=== PATIENT | female | born 1985 | race Hispanic/Latino ===

== ENCOUNTER 2017-06-07 17:38 | Emergency (ER) | payer SELFPAY ==
[2017-06-07 18:00] VITALS: O2SAT 97
--- NOTE | 2017-06-07 18:40 | ED.PDOC ---
History of Present Illness - General Chief Complaint: Lower Extremity Injury Stated Complaint: RIGHT HIP PAIN Time Seen by Provider: 06/07/17 18:30 Source: patient Exam Limitations: no limitations - History of Present Illness Initial Comments: Dottie Jordan 31 y/o female seen er today with dull ache right side of her back goes to the back of her right hip stating strong wind blew the dresser while she was bending over and landed on her back causing her symptoms.No bowel or bladder dysfunction but pain on straightening her back. Timing/Duration: 1-3 hours Quality/Severity: dullness Back Pain Location: lumbar spine, paraspinous muscles Back Pain Radiation: other - right hip Method of Injury/Prior Injury: other - see hpi Improving Factors: rest Worsening Factors: movement Associated Symptoms: denies symptoms Allergies/Adverse Reactions: Allergies Codeine Adverse Reaction (Mild, Verified 11/05/14 11:51) Itching Mometasone [From Nasonex] Adverse Reaction (Mild, Verified 11/05/14 11:51) Itching Home Medications: Ambulatory Orders Acetaminophen W/ Codeine [Tylenol W/ CODEINE #3] 1 ea PO Q6H #20 11/05/14 Amoxicillin & Pot Clavulanate [Augmentin] 875 mg PO BID #14 tab 11/05/14 Clindamycin HCl [Cleocin] 600 mg PO BID #14 cap 11/05/14 Naproxen [Naprosyn] 500 mg PO BID #30 tab 11/05/14 Ondansetron [Zofran Odt] 4 mg PO Q6H #20 tab 11/05/14 Tramadol HCl [Ultram] 50 mg PO Q6H #20 tab 11/05/14 Review of Systems - Review of Systems Constitutional: States: no symptoms reported EENTM: States: no symptoms reported Respiratory: States: no symptoms reported Cardiology: States: no symptoms reported, chest pain Genitourinary: States: no symptoms reported Musculoskeletal: States: see HPI Neurological: States: no symptoms reported All other Systems: Reviewed and Negative, No Change from Baseline Past Medical History (General) - Patient Medical History Hx Stroke: No Hx Asthma: No Hx of COPD: No Hx Cardiac Disorders: No Hx Congestive Heart Failure: No Hx Diabetes: No Hx Renal Disease: No Hx MRSA: No - Vaccination History Hx Tetanus, Diphtheria Vaccination: Yes - 10/2014 Hx Influenza Vaccination: No - Social History Hx Tobacco Use: No Hx Substance Use: No Hx Physical Abuse: No Hx Emotional Abuse: No Hx Suspected Abuse: No - Female History Patient is a Female of Child Bearing Age (10 -59 yrs old): Yes Hx Last Menstrual Period: 06/07/17 - started her period Patient : No Family Medical History - Family History Mother Name: Gena Living Status: Still Living Hx Family Hypertension: Yes - parents Hx Family Diabetes: Yes - parents Age of Onset (years of age): unk Hx Family Cancer: Yes - cervical cancer-multiple family members Father Name: Noah Living Status: Still Living Hx Family;Other: undergoing biopsies and scans currently for possible liver cancer Physical Exam - Physical Exam General Appearance: Alert, Comfortable, No apparent distress Eyes, Ears, Nose, Throat Exam: PERRL/EOMI, normal ENT inspection Neck Exam: non-tender, full range of motion, normal alignment Cardiovascular/Respiratory: regular rate, rhythm, no M/R/G, normal peripheral pulses Peripheral Pulses: radial,right: 2+, radial,left: 2+ Gastrointestinal/Abdominal: normal bowel sounds, non tender, soft, no organomegaly Back Exam: muscle spasm, vertebral tenderness - right lumbar area Extremity Exam: no evidence of injury, normal range of motion, non-tender, no pedal edema Neurologic: no motor/sensory deficits, alert, oriented x 3 Skin Exam: normal color, warm/dry Progress - Progress Progress: 06/07/17 18:44 Last Vital Signs Temp 97.6 F 06/07/17 17:49 Pulse 80 06/07/17 17:49 Resp 20 06/07/17 17:49 BP 129/85 06/07/17 17:49 Pulse Ox 97 06/07/17 17:49 - EKG/XRAY/CT XRAY: hip - no fracture right hip and lumbar spine Departure - Departure Clinical Impression: Contusion of hip, right Qualifiers: Encounter type: initial encounter Qualified Code(s): S70.01XA - Contusion of right hip, initial encounter Lumbar contusion Qualifiers: Encounter type: initial encounter Qualified Code(s): S30.0XXA - Contusion of lower back and pelvis, initial encounter Time of Disposition: 19:50 Disposition: Discharge to Home or Self Care Condition: Fair Departure Forms: ED Discharge - Pt. Copy, Patient Portal Self Enrollment Instructions: DI for Contusion, Contusion Referrals: Domenic Arroyo MD [Primary Care Provider] - 1-2 Weeks Home Medications: Ambulatory Orders Acetaminophen W/ Codeine [Tylenol W/ CODEINE #3] 1 ea PO Q6H #20 11/05/14 Amoxicillin & Pot Clavulanate [Augmentin] 875 mg PO BID #14 tab 11/05/14 Clindamycin HCl [Cleocin] 600 mg PO BID #14 cap 11/05/14 Naproxen [Naprosyn] 500 mg PO BID #30 tab 11/05/14 Ondansetron [Zofran Odt] 4 mg PO Q6H #20 tab 11/05/14 Tramadol HCl [Ultram] 50 mg PO Q6H #20 tab 11/05/14 Additional Instructions: Continue with ice pack to affected area 20 minutes 3 x a day during waking hours only as needed for 5 days;No heat for the next 3 days;May take ALEVE (otc ) 2 tablets am/pm also for pain with tramadol
[2017-06-07] MEDS ORDERED: KETOROLAC TROMETHAMINE INJ 30 MG/ML VIAL IM ONE (19:21)
[2017-06-07] MEDS ORDERED: ORPHENADRINE CITRATE 30 MG/ML AMP IM ONE (19:21)
--- NOTE | 2017-06-07 19:27 | RAD ---
EXAM DESCRIPTION: Hip,Right 2 Views CLINICAL HISTORY: 31 years Female pain COMPARISON: None. TECHNIQUE: RIGHT hip, two views FINDINGS: No acute fractures or dislocations are identified. No osseous destructive lesions. IMPRESSION: No acute fracture is identified. Electronically signed by: Cristal Ag 06/07/2017 7:26 PM [facility]
--- NOTE | 2017-06-07 19:28 | RAD ---
EXAM DESCRIPTION: Lumbar Spine 3 Views CLINICAL HISTORY: 31 years ,Female pain COMPARISON: None. TECHNIQUE: Three views FINDINGS: Vertebral body alignment is unremarkable. No acute fractures are identified. IMPRESSION: No acute fracture is identified. Electronically signed by: Cristal Ag 06/07/2017 7:27 PM [facility]
[2017-06-07] MEDS ORDERED: traMADol HCL 50 MG (ER DISP) # 6 TABS PO ONE (19:50)
[2017-06-07 20:06] VITALS: BP 112/76; TEMP 97.1
== END 2017-06-07 20:05 | disposition home or self-care (01) ==
LOC: ER 17:38
DX: S70.01XA Contusion of right hip, initial encounter (principal); S30.0XXA Contusion of lower back and pelvis, initial encounter; W20.8XXA Other cause of strike by thrown, projected or falling object, initial encounter; Y92.9 Unspecified place or not applicable
CPT/HCPCS: 72100; 73502; J1885; J2360